=== PATIENT | male | born 1985 | race Two or more races ===

== ENCOUNTER 2025-09-19 17:00 | Emergency (ER) | payer SELFPAY ==
[~2025-09-19] VITALS: Ht 177.8 cm; Wt 81.6 kg
[2025-09-19 17:02] VITALS: BP 133/93; PULSE 104; RESP 16; O2SAT 99
--- NOTE | 2025-09-19 17:34 | Physician Documentation ---
HPI ~ General Chief Complaint: Medication Request Stated Complaint: MED REQUEST Time Seen by MD: 17:32 History of Present Illness HPI Comments This is a 40-year-old male who presents to the emergency department requesting a refill on his Suboxone 8-2. He reports that he typically takes 1-2 films per day and has for more than a decade. He denies any other concerns today. Medication Reconciliation Allergies: Coded Allergies: Penicillins (Unverified Allergy, Mild, hives, 09/19/25) Review of Systems ROS As stated above in the HPI, otherwise all systems are reviewed and negative. Physical Exam Physical Exam Vital Signs: Temperature: 98.6, Source: Oral, Heart Rate: 104, Respiratory Rate: 16, BP: 133/93, Pulse Oximetry: 99, Weight: 81.600 Oxygen Flow Rate: 0 Physical Exam General: Alert, no apparent distress. HEENT: PERRL, EOMI, no injection, moist mucous membranes. Neck: Full range of motion. Respiratory: Lungs clear, no respiratory distress. Chest: No accessory muscle use. Cardiovascular: Regular rate and rhythm, no murmurs. Gastrointestinal: Soft, nontender, nondistended. Bowels sounds present. Extremities: Normal range of motion, no deformity. Neurologic: Oriented x4. Psychiatric: Normal mood and affect. Skin: Normal color, warm and dry. No edema, no ecchymosis. Progress Results/Orders Results/Orders Orders - ANNA GARCIA [employer] Buprenorphine/Naloxone Sl Film (Suboxone (09/19/25 17:35) Vital Signs 09/19/25 17:02 Temp 98.6 Pulse 104 Resp 16 B/P (MAP) 133/93 Pulse Ox 99 O2 Flow Rate 0 Medical Decision Making Additional information obtaine: N/A Findings no previous visits to this facility. Differential Dx:Considerations: Include: Adverse circumstances, Economic, Psychosocial, Medical services unavail., Medication refill, Medication non- compliance Additional Comment Here visiting his father and his car broke down. Typically sees a PCP that is not local. Departure Time of Disposition: 17:36 Impression: Primary Impression: General medical exam Additional Impression: Opioid use disorder Condition: Stable Discharge Instructions: Opioid Use Disorder Additional Instructions: You were given a 10 day refill to give you chance to return home to see your PCP. Please see your PCP for any further refills. Return if needed. Referrals: NO PRIMARY CARE PROVIDER (PCP) Prescriptions Buprenorphine Hcl/Naloxone Hcl (Suboxone 8 Mg-2 Mg Sl Film) 8 Mg-2 Mg Film 1 STRIP SL BID for 10 Days, #20 STRIP Prov: ANNA GARCIA NP 09/19/25 Education Educated: Patient Educated regarding: diagnosis, treatment, prognosis, need for follow up Signature Scribe Signature: x Attestation: The note accurately reflects work and decisions made by me.Anna Nathan NP 09/19/25 17:35 ANNA GARCIA NP Sep 19, 2025 17:34
[2025-09-19] MEDS ORDERED: buprenorphine/naloxone 8MG-2MG SUBlingual film SL SCH (17:35)
[2025-09-19] MEDS ORDERED: BUPR1FIL3 SL (17:37)
[2025-09-19] MEDS: buprenorphine/naloxone 8MG-2MG SUBlingual film SL ONE (17:58)
[2025-09-19 18:09] VITALS: TEMP 98.6
== END 2025-09-19 18:12 | disposition home or self-care (01) ==
LOC: ER 17:01
DX: Z00.00 Encounter for general adult medical examination without abnormal findings (principal); F11.10 Opioid abuse, uncomplicated; Z76.0 Encounter for issue of repeat prescription; Z88.0 Allergy status to penicillin
CPT/HCPCS: 99283

== ENCOUNTER 2025-10-02 04:58 | Emergency (ER) | payer OTHER ==
[~2025-10-02] VITALS: Ht 177.8 cm; Wt 77.1 kg
[2025-10-02 05:01] VITALS: BP 127/85; PULSE 107; RESP 16; TEMP 97.8; O2SAT 97
--- NOTE | 2025-10-02 05:17 | Physician Documentation ---
HPI ~ General Chief Complaint: Medication Request Stated Complaint: MEDICATION REQUEST Time Seen by MD: 05:13 History of Present Illness HPI Comments This is a 40-year-old gentleman who has been on Suboxone therapy since 2012 presents with a request for a dose of Suboxone. He is visiting from [facility]. He does not have his prescription here. He has been out of his medication. He states that he has been out for three days. He is experiencing sweats and body aches at this point, but denies nausea, vomiting, diarrhea. He states that he has been here earlier, has a prescription sent to a local pharmacy, but it was over 100 dollars and he could not afford to pick it up, his insurance would not pay for it because it [place] out of state/out of network. He called around and discovered that there is a place in [facility] that would provide him with a Suboxone supply, however he would like a dose of medication to bridge him until such time that he hit picks up his new supply. Denies any other symptoms or issues. Medication Reconciliation Allergies: Coded Allergies: Penicillins (Unverified Allergy, Mild, hives, 09/19/25) Discontinued Medications Buprenorphine Hcl/Naloxone Hcl (Suboxone 8 Mg-2 Mg Sl Film), 1 STRIP SL BID Discontinued Reason: Auto Discontinued Review of Systems ROS 10 point review of systems was performed and unless noted above in HPI is negative for acute process/complaint. Physical Exam Physical Exam Vital Signs: Temperature: 97.8, Heart Rate: 107, Respiratory Rate: 16, BP: 127/85, Pulse Oximetry: 97, Weight: 77.100 Physical Exam Physical examination: GENERAL: Awake, alert, oriented, GCS 15, no apparent distress, non-toxic appearing, answers questions, follows commands appropriately. HEENT: Atraumatic, normocephalic, pupils equal, extraocular muscles intact Active gross movements, sclerae anicteric, mucus membranes moist, no stridor. NECK: Midline, no JVD CARDIOVASCULAR: Good skin perfusion without evidence of pallor, mottling. PULMONARY: Nonlabored, symmetric chest rise, no audible wheezing, no accessory muscle use, no respiratory distress, speaking in full sentences. GASTROINTESTINAL: Not distended. NEUROLOGIC: Lucid with normal mental status. Normal facial symmetry. Moves all extremities symmetrically and with purpose. No truncal ataxia. Speech is fluid without evidence of dysarthria or aphasia, no focal deficits appreciated. EXTREMITIES: Acute deformities Skin: warm, dry PSYCHIATRIC: Normal affect, normal insight, normal concentration. Focused exam: [] Progress Results/Orders Results/Orders Vital Signs 10/02/25 05:01 Temp 97.8 Pulse 107 Resp 16 B/P (MAP) 127/85 Pulse Ox 97 Medical Decision Making Additional information obtaine: old records Findings Facility Status: ED Holds, RME process The plan was discussed with the patient, who demonstrates clear understanding of the plan and is in agreement with the plan unless otherwise noted in the chart. All questions have been answered, all concerns were addressed unless otherwise documented. I was available throughout their ED stay for frequent reassessment and que stions. Differential Diagnoses (considered and possible or likely): [Encounter for Desai boxone therapy, opioid withdrawal, unlikely to be drug-seeking behavior.] ??Differential Diagnoses (considered and unlikely, not requiring evaluation currently): [Denies any somatic complaints and otherwise this is a] MDM Data Please see [facility] for the following: Independent Historians and external Records Review. Historian: [Patient] Independent Historians: ?[Record review] Medication Management: [Reviewed medication list] Social History and determinants: [Reviewed] Please see the body of the note for the following: Any independent interpretations of ECG, imaging studies. All vitals signs/haemodynamics, ordered tests were independently reviewed and interpreted by myself. Nursing triage complaint and vitals reviewed, additional nursing notes were reviewed as available and I agree unless otherwise noted or documented in contradiction in the chart Vital Signs: Independently reviewed Labs: Independently interpreted Imaging: Independently interpreted Old Medical Records: Independently reviewed, see [facility] for relevant summary and information ] Additionally notably showing: [Hemodynamically stable] Tests considered but not ordered include: [Hematologic workup and imaging has been considered but does not appear to be necessary given clinical nature of diagnosis] Social Determinants of Health Impact: Patient was evaluated in [facility] [place] to healthcare due to below par ratio of patient to medical providers. [] Comorbid Conditions Impacting Present Evaluation and Care/Treatment: [On Suboxone therapy long-term] Management Discussions with other Healthcare Providers: [None] Treatment and Disposition Medication Management (Given or considered): [Single dose of Suboxone]. See EMR for details Consideration for Hospitalization/Escalation/Deescalation of Care: Admission for observation has been considered, [however the patient is able to tolerate p.o., their symptoms are controlled, they are able to rely on oral medications, and their chief complaint/diagnosis can be managed on outpatient basis.] ?ED Course:?[Feels better.] ?Shared decision making:? Patient is hemodynamically stable for discharge home with follow with their primary care provider. [ ] Specific and cautious return precautions provided and discussed with full understanding. Any incidental f indings were also discussed and follow up recommendations given. [] All questions answered. Patient/family were able to verbalize back return precautions. Patient/family agree to plan. Copies of imaging and laboratory studies were provided. [] Code status:?FULL Please see the full Electronic Medical Record for full details of nursing documentation, medications list, other records of complete past medical history and conditions, vital signs, laboratory studies, and any radiologic study interpretations by radiologists. Portions of this note were completed using [employer] dictation software and as a result there may exist minor errors in spelling. I have reviewed elements of past family and social history and agree as included in note. Differential Dx:Considerations: Include: Adverse circumstances, Economic, Psychosocial, Medical services unavail., Medication refill, Medication non- compliance, Other (See body of the main note for differential diagnosis) Departure Disposition: 01 HOME / SELF CARE / HOMELESS Impression: Primary Impression: Encounter for monitoring Suboxone maintenance therapy Additional Impression: Opioid withdrawal Condition: Improved Discharge Instructions: Medicine Refill at the Emergency Department Referrals: NO PRIMARY CARE PROVIDER (PCP) Education Educated: Patient Educated regarding: diagnosis, treatment, prognosis Signature Scribe Signature: No scribe Attestation: The note accurately reflects work and decisions made by me.Otilio Mcintosh DO 10/02/25 05:16 OTILIO MCINTOSH DO Oct 02, 2025 05:17
[2025-10-02] MEDS: buprenorphine/naloxone 8MG-2MG SUBlingual film SL ONE (05:32)
== END 2025-10-02 05:33 | disposition home or self-care (01) ==
LOC: ER 04:59
DX: F11.23 Opioid dependence with withdrawal (principal); Z76.0 Encounter for issue of repeat prescription; Z88.0 Allergy status to penicillin
CPT/HCPCS: 99283